=== PATIENT | female | born 1985 | race African-American/Black ===

== ENCOUNTER 2019-11-30 00:06 | Emergency (ER) | payer OTHER | END 2019-11-30 02:12 | disposition home or self-care (01) | LOC: M.ERS 00:06 | DX: S32.020A Wedge compression fracture of second lumbar vertebra, initial encounter for closed fracture (principal); S30.1XXA Contusion of abdominal wall, initial encounter; M25.512 Pain in left shoulder; F17.210 Nicotine dependence, cigarettes, uncomplicated; V89.2XXA Person injured in unspecified motor-vehicle accident, traffic, initial encounter; Y93.89 Activity, other specified; Y92.89 Other specified places as the place of occurrence of the external cause; Y99.8 Other external cause status ==